=== PATIENT | male | born 1995 | race Caucasian/White ===

== ENCOUNTER 2019-05-24 13:14 | Emergency (ER) | payer OTHER ==
--- NOTE | 2019-05-24 15:51 | UC ---
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 HIS RIGHT THUMB WAS BENT BACKWARDS. SINCE THEN HE HAS HAD WORSENING PAIN IN HIS RIGHT THUMB AND WRIST. 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 Negative: Numbness/Tingling Related History: Dominant Hand Right - Allergies/Home Medications Allergies/Adverse Reactions: Allergies Allergy/AdvReac Type Severity Reaction Status Date / Time No Known Allergies Allergy Verified 05/24/19 14:59 Home Medications: Home Medications NK [No Home Medications Reported] 05/24/19 [History Confirmed 05/24/19] PMH/Surg Hx/FS Hx/Imm Hx Previously Healthy: Yes - Surgical History Surgical History: Yes Surgery Procedure, Year, and Place: orif of rt lower arm - Family History Known Family History: Positive: Non-Contributory - Social History Alcohol Use: Occasionally Substance Use Type: None Smoking Status (MU): Never Smoked Tobacco Review of Systems All Other Systems Reviewed And Are Negative: Yes Constitutional: Positive: Negative Respiratory: Positive: Negative Cardiovascular: Positive: Negative Gastrointestinal: Positive: Negative Musculoskeletal: Positive: Arthralgia, Decreased ROM, Edema Physical Exam Triage Information Reviewed: Yes Appearance: Well-Appearing, No Pain Distress, Well-Nourished Vital Signs: Initial Vital Signs Temp 98.4 F 05/24/19 14:50 Pulse 57 05/24/19 14:50 Resp 18 05/24/19 14:50 BP 124/76 05/24/19 14:50 Pulse Ox 100 05/24/19 14:50 Vital Signs Reviewed: Yes Eyes: Positive: Conjunctiva Clear ENT: Positive: Hearing grossly normal Neck: Positive: Supple Respiratory: Positive: No respiratory distress, No accessory muscle use Cardiovascular: Positive: Pulses Normal Abdomen Description: Positive: Soft Musculoskeletal: Positive: ROM Limited @ - RIGHT THUMB/WRIST, Edema @ - RIGHT HAND, Other: - TTP BASE OF RIGHT THUMB Neurological: Positive: Alert Psychological: Positive: Age Appropriate Behavior Skin: Negative: Rashes Procedures - Splinting Right Thumb Hand-Made Type: orthoglass Splint: thumb spica Pre-Proc Neuro Vasc Exam: normal Post-Proc Neuro Vasc Exam: normal Diagnostics - Radiology RIGHT HAND XRAYS Radiology Interpretation Completed By: Radiologist Summary of Radiographic Findings: Oblique fracture through the base of the first metacarpal with slight displacement. Hand/Wrist Course/Dx - Course Course Of Treatment: PATIENT FELT WORSE IN THE PRE-MADE THUMB SPICA SPLINT SO ORTHO-GLASS WAS USED TO IMMOBILIZE THE PATIENT'S RIGHT THUMB. HE WILL CALL ORTHOPEDICS FOR FOLLOW- UP APPOINTMENT NEXT WEEK. OTC MEDICATIONS NEEDED FOR DISCOMFORT. NO WORK UNTIL SEEN BY ORTHO. BINDERY MACHINE TENDER PAD WAS USED FOR COMMUNICATION PURPOSES TODAY. - Differential Dx/Diagnosis Provider Diagnosis: Fracture of metacarpal base, first, right hand, closed Discharge - Sign-Out/Discharge Documenting (check all that apply): Patient Departure All imaging exams completed and their final reports reviewed: Yes - Discharge Plan Condition: Stable Disposition: HOME Patient Education Materials: Thumb Fracture (ED) Print Language: TAMAZIGHT Forms: *Work Release Referrals: [facility] [Provider Group] - 3 Days Alverto Merida MD [Medical Doctor] - 3 Days Additional Instructions: X-RAY TODAY SHOWS A SLIGHTLY DISPLACED FRACTURE THROUGH THE BASE OF YOUR RIGHT THUMB. WEAR THE THUMB SPICA SPLINT UNTIL SEEN BY ORTHOPEDICS. USE THE SLING TO KEEP YOUR HAND ELEVATED AND OUT OF THE WAY. AVOID ANY ACTIVITIES THAT INVOLVE USING YOUR RIGHT HAND UNTIL OTHERWISE STATED BY ORTHOPEDICS. IBUPROFEN NEEDED FOR DISCOMFORT. CALL THE ORTHOPEDIC OFFICE OF YOUR CHOICE TODAY TO SCHEDULE A FOLLOW-UP APPT FOR EARLY NEXT WEEK. - Billing Disposition and Condition Condition: STABLE Disposition: Home
== END 2019-05-24 16:31 | disposition home or self-care (01) ==
LOC: UCEAST 13:14
DX: S62.231A Other displaced fracture of base of first metacarpal bone, right hand, initial encounter for closed fracture (principal); W23.0XXA Caught, crushed, jammed, or pinched between moving objects, initial encounter; Y93.K9 Activity, other involving animal care; Y92.73 Farm field as the place of occurrence of the external cause; Y99.0 Civilian activity done for income or pay
CPT/HCPCS: 99201; G0463

== ENCOUNTER → 2019-05-31 12:10 | Day surgery (SDC) | payer OTHER ==
--- NOTE | 2019-05-31 06:46 | HP ---
HISTORY AND PHYSICAL: DATE OF ADMISSION/SURGERY: 05/31/19 DATE OF OFFICE VISIT: 05/30/19 SURGEON: Dr. Enciso.* (DICTATED BY TODD SCHROEDER) PROCEDURE: Right closed reduction and percutaneous pinning versus open reduction and internal fixation thumb metacarpal base. CHIEF COMPLAINT: Right thumb pain. HISTORY OF PRESENT ILLNESS: Armando Bunch is a 23-year-old male presenting to the clinic today for right thumb pain. He cannot speak Canadian. His boss is accompanying him to the office visit today. Between his boss and Dr. Enciso, we were able to translate. 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 A cow turned and bent his hands, forcing his thumb into abduction. He had swelling immediately of his right hand and thumb. When the swelling and pain did not decrease, he went to urgent care on 05/24/19 and had x-rays done showing a fracture at the base of the right thumb. They gave him a splint and referred him to our office. He is right-handed. Today, he is having 3/10 aching pain in his right thumb. He is able to bend the thumb, but does cause pain and he does have some pain with terminal end range of wrist flexion and extension. He does not have a history of any injury to his right thumb previously. He did have an ORIF of his right ulna in [facility] several years ago. He has no radiation of pain and he denies numbness or tingling and he denies any other joint pain. PAST MEDICAL HISTORY: Negative. PAST SURGICAL HISTORY: Right ulna ORIF in [facility] at unknown date. MEDICATIONS: No current medications. ALLERGIES: No known drug allergies. FAMILY HISTORY: Unobtainable. SOCIAL HISTORY: He lives alone. 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 He denies any tobacco or recreational drug use. He drinks about 2 alcoholic beverages per week. He is right-handed. REVIEW OF SYSTEMS: Negative for general, cephalic, CV, respiratory, GI, , or other musculoskeletal, integumentary, endocrine, neurologic, hematologic symptoms. Infectious disease is negative for MRSA, hep C, or HIV. PHYSICAL EXAMINATION GENERAL: Well-developed, well-nourished, 23-year-old male, in no acute distress. VITAL SIGNS: Height 64 inches, weight 160 pounds. Pulse 68, BP 122/68, respirations 16, temperature 98.0. Pain level is 3. BMI 27.5. HEENT: Normocephalic, atraumatic. PERRLA. Extraocular movements intact. NECK: Supple. No palpable lymph nodes. Throat is clear. PULMONARY: Lungs are clear to auscultation bilaterally. No wheezes, rales, or rhonchi. CARDIO: Regular rate and rhythm. S1 and S2 heard. No murmurs, rubs, gallops. No edema. ABDOMEN: Positive bowel sounds. Soft and nontender. NEUROLOGIC: A and O x3. Cranial nerves II through XII intact. Sensation is intact to light touch. MUSCULOSKELETAL: Right upper extremity, there is diffuse soft tissue swelling about the right hand and right thumb. There are no open wounds or abrasions. He has tenderness to palpation at the base of the left metacarpal joint. He has full range of wrist motion with some pain with terminal flexion and extension. He is able to flex and abduct his thumb minimally due to pain. The ulnar collateral ligament is intact with stress testing of the thumb. Strength of the wrist and fingers is 5/5. Sensation is intact to light touch. Radial pulses 2+. DIAGNOSTIC STUDIES: Films from 05/24/19 show an intraarticular base fracture of the right thumb with volar ulnar fragment connected to the beak ligament. It is displaced at least 1 mm, positive for Mckinley fracture. IMPRESSION: Right thumb Mckinley fracture. PLAN: The patient is scheduled to undergo a right closed reduction and percutaneous pinning versus open reduction and internal fixation of the thumb in the metacarpal base with Dr. Enciso on 05/31/19. Dr. Enciso went over the procedure as well as the risks and benefits with the patient. He elected to proceed. He will follow up in the office in 10 to 14 days postop for followup and suture removal and a prescription for Percocet will be e-scribed to the patient's pharmacy following the surgery tomorrow morning. TODD SCHROEDER [id number]/[facility] #: [id number] [facility]
[~2019-05-31 12:10] MED LIST: Acetaminophen TAB* 325 MG ONE; Acetaminophen TAB* 325 MG PO ONE; Buffered Lidocaine 1% SYRIN* 1 ML/SYRINGE INTRADERM ONE; Bupivacaine 0.25% SDV PF* 10 ML VIAL INJ ONE; Dexamethasone IV* 4 MG/ML 1 ML (4 MG) ONE; DiMENhydriNATE IV* 50 MG/ML VIAL IV PUSH PRN; Famotidine IV* 10 MG/ML 2 ML (20 mg) ONE; Gabapentin CAP(*) 300 MG ONE; Gabapentin CAP(*) 300 MG PO ONE; HYDROcodone/ACETAMIN 5-325 MG* 1 TAB ONE; HYDROcodone/ACETAMIN 5-325 MG* 1 TAB PO PRN; Ketorolac INJ* 30 MG/ML 1 ML VIAL ONE; Lactated Ringers 1000 ML Bag* 1,000 ML IV SCH; Lidocaine 2% PF * 5 ML VIAL ONE; Midazolam* 1 MG/ML 2 ML VIAL (2 MG) ONE; Naloxone* 0.4 MG/ML 1 ML VIAL IV PRN; Ondansetron INJ* 2 MG/ML VIAL IV PRN; PROCHLORPERAZINE INJ 5 MG/ML 2 ML VIAL IV PRN; Propofol* 10 MG/ML 20 ML BTL ONE; ceFAZolin 2 GM in NS PREMIX(*) 2 GM/100 ML BAG IVPB ONE; diPHENhydraMINE IV* 50 MG/ML 1 ml VIAL (BENADRYL) IV PRN; fentaNYL* 50 MCG/ML 2 ML VIAL (100 MCG VIAL) IV PRN; fentaNYL* 50 MCG/ML 2 ML VIAL (100 MCG VIAL) ONE
[2019-05-31 18:27] VITALS: BP 125/78
--- NOTE | 2019-06-02 05:46 | OP ---
OPERATIVE REPORT: DATE OF OPERATION: 05/31/19 DATE OF : [birth year] SURGEON: Geovanni Enciso MD POLYMERIZATION KETTLE OPERATOR: TODD Jean A physician cosmetic sales assistant was required for the length of the procedure for assistance with patient positioning, instrumentation. ANESTHESIOLOGIST: Dr. Stef Wilson. ANESTHESIA: General anesthesia, local anesthesia consisting of 6 cc of Marcaine 0.5% with epinephrine. PRE-OP DIAGNOSES: Right thumb metacarpal base fracture, Mckinley's fracture, fracture dislocation of carpometacarpal joint. POST-OP DIAGNOSES: Right thumb metacarpal base fracture, Mckinley's fracture, fracture dislocation of carpometacarpal joint. OPERATIVE PROCEDURE: Closed reduction percutaneous pinning, right thumb metacarpal base fracture, Mckinley's fracture. 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 The patient's pain and swelling in the thumb did not improve and he went to an urgent care on 05/24/19, which demonstrated a fracture and the patient then saw me in clinic on 05/30/19. X-rays demonstrated an intraarticular fracture at the base of the right thumb metacarpal with some resultant minimal subluxation of the carpometacarpal joint. Displacement was at least 1 mm. Difficult to tell whether it was 1 or 2 mm, but it was at least 1 mm. I discussed with the patient how we generally recommend surgery if there is more than 1-mm displacement at the base of the thumb, intraarticular for fractures such as this Mckinley's fracture. Discussed risks and potential complications of surgery. Booked the patient for closed reduction percutaneous pinning versus open reduction and internal fixation. Fortunately, I was able to get the patient an operating room slot the next day because as we would be 9 days post-injury, we would be close to be the upper end of time for closed reduction percutaneous pinning to work. It is my preference to use percutaneous pins for this fracture if possible as all hardware can be removed, but I had all the instrumentation available to place screws after doing open reduction, as needed. ANTIBIOTICS: Ancef 2 g IV. IV FLUIDS: See Anesthesia note. TOURNIQUET TIME: 0 minutes. EOMH-FV-[id number] TIME: Approximately 50 minutes. RADIATION EXPOSURE: Mini C-arm utilized. Time and radiation dose not yet available. IMPLANTS: 0.045 K wires x 3 COMPLICATIONS: None. ESTIMATED BLOOD LOSS: Minimal. DESCRIPTION OF PROCEDURE: In the preoperative holding, the patient signed a written consent. I spoke with the patient in Armenian although we also had an sales representative education courses, rather a nurse providing interpreting services. I had also spoken in the clinic to one of the patient's employers who is Ukrainian speaking. The patient signed a written consent in the preoperative holding and the operative extremity was marked as well. The patient was taken back to the operating room on a stretcher. The patient was sedated and intubated. Hand table was applied. The right upper extremity was prepped and draped after a tourniquet had been applied to the right upper arm. We had some technical issues with the mini C-arm. We waited a while for it to be started. Just as we were ready to use another mini C-arm device, this mini C -arm started working. I brought the mini C-arm in. I performed a range of reduction maneuvers and was able to reduce the fracture to my satisfaction, so decided that I would proceed forward with a closed reduction percutaneous pinning. I used 0.045 K-wires for this procedure. I placed my first one from the more radial side of the midline on the dorsal aspect of the proximal thumb metacarpal. I directed it proximal and slightly ulnar. I performed a reduction maneuver again, which at this point was mostly straight longitudinal traction. I advanced the pin. Took mini C-arm images which showed anatomic reduction in all views, lateral, AP, PA, and obliques. The K-wire had driven into the trapezium and trapezoid. It actually had even driven slightly further ulnar and we pulled it back later on the case. I next placed an additional K-wire; this from the ulnar half of the dorsal aspect of the proximal thumb metacarpal. I respected the location of the extensor tendons. I placed this more straight proximally, although was moving in a slightly volar direction and I placed that into the trapezium. I placed an additional third pin from more radial than the first pin, placing it through the base of the thumb metacarpal. This pin actually engaged the small volar ulnar fragment, although that was not my intention. It appeared to maintain the reduction nicely and I withdrew the pin so it was not overly long but it did not clearly enter the metacarpal trapezium joint. There were only several drops of bleeding during the case. I pulled back the pins slightly so that they would not be overly prominent proximally, although difficult to get an excellent lateral view of the trapezium and trapezoid. I took final x-ray views. I cut and then bent and cut again the K-wires outside of the body. I put end caps on. I wrapped their bases with Xeroform and then placed a bulky 4x4 dressing, followed by Webril, followed by large radial gutter splint that fully encased thumb to its tip overwrapped with an Julain bandage. DISPOSITION: The patient was extubated and brought to the PACU. The patient was given Percocet to take as needed for pain and a 7-day course of Keflex to avoid infection. The patient's general appearance was very hygienic and well presented and I spoke to both him and his employer in detail about the need for him to keep that splint in that hand clean to avoid infection. The patient will follow up in just over 1 week in clinic and at that time we will obtain x- rays and we will place a cast. My plan will be for the patient to remain with the pins in place for 4 to 6 weeks postoperative. The patient is aware and he knows that he will be limited in his ability to do any work about the farm. [id number]/[facility] #: [id number] MICHEL
== END | disposition home or self-care (01) ==
LOC: OR 12:10
PROVIDERS: ATTEND Orthopaedic Surgery
DX: S62.211A Bennett's fracture, right hand, initial encounter for closed fracture (principal); W55.22XA Struck by cow, initial encounter; Y93.89 Activity, other specified; Y92.73 Farm field as the place of occurrence of the external cause; Y99.0 Civilian activity done for income or pay
CPT/HCPCS: 76000; A9270-GY; C1776; J0690; J1100; J1885; J2250; J2704; J3010; J3490

== ENCOUNTER 2019-08-06 08:53 | Emergency (ER) | payer OTHER ==
--- OUTSIDE RECORDS SUMMARY | 2019-08-06 08:59 | XMS REPORT | Continuity of Care Document ---
:1995 External Reference #:[id number] Author Name Antony Amayafelix Care Team Providers Name Role Phone Patient's Choice Primary Care Physician Unavailable Payers Date Identification Numbers Payment Provider Subscriber Onset: 2019 Policy Number: [id number] Magda Bunch PayID: [id number] [address] [address] [place] [address] Problems Description No Active Problems Family History Date Family Member(s) Observation Comments General No Current Problems Social History Type Date Description Comments Sex Unknown Lives With Alone Occupation [employer] ETOH Use Drinks 2 Alcoholic Beverages Per Week Tobacco Use Start: Unknown Patient has never smoked Smoking Status Reviewed: 06/11/19 Patient has never smoked Exercise Type/Frequency Exercises regularly Allergies, Adverse Reactions, Alerts Description No Known Drug Allergies Medications Active Medications SIG Qnty Indications Ordering Provider Date No Active Medications Unknown 06/11/2019 History Medications Percocet 1 by mouth every 20tabs Geovanni Zacarias 05/31/2019 - 5-325mg Tablets 6 hours as MD Zaria 06/10/2019 needed pain Keflex take 1 tablet by 21caps Geovanni Zacarias 05/31/2019 - 500mg Capsules mouth every 8 MD Zaria 06/10/2019 hours for 7 days No Active Medications Unknown 05/30/2019 - 05/31/2019 Vital Signs Date Vital Result Comment 06/11/2019 2:00pm Height 64 inches 5'4" Weight 160.00 lb Heart Rate 64 /min BP Systolic 128 mmHg BP Diastolic 78 mmHg Body Temperature 97.0 F Pain Level 0 BMI (Body Mass Index) 27.5 kg/m2 05/30/2019 3:47pm Height 64 inches 5'4" Weight 160.00 lb Heart Rate 68 /min BP Systolic 122 mmHg BP Diastolic 68 mmHg Respiratory Rate 16 /min Body Temperature 98.0 F Pain Level 0 BMI (Body Mass Index) 27.5 kg/m2 Procedures Date Code Description Status 06/11/2019 12845 Short Arm Cast Application Completed 05/31/2019 96133 FX Metacarpal Percutaneous Skeletal Fixation Completed 05/31/2019 13563 FX Metacarpal Percutaneous Skeletal Fixation Completed 05/31/2019 28674 FX Metacarpal Percutaneous Skeletal Fixation Completed Plan of Treatment Future Appointment(s):07/04/2019 1:30 pm - Ge[facility] Enciso MD [facility]06/11/2019 - Geovanni Enciso, [id number] Mckinley 's fracture, right hand, subsequent encounter for fracture with routine healingFollow up:Follow up: 3.5 weeks with xrays
--- OUTSIDE RECORDS SUMMARY | 2019-08-06 08:59 | XMS REPORT | Continuity of Care Document ---
:1995 External Reference #:[id number] Demographics Address [address] [place] [address] Home Phone [phone] Mobile Phone [phone] Email Address 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 Problems Description No Active Problems Social History Type Date Description Comments Sex Unknown ETOH Use Drinks 2 Alcoholic Beverages Per Week Tobacco Use Start: Unknown Patient has never smoked Smoking Status Reviewed: 07/25/19 Patient has never smoked Exercise Type/Frequency Exercises [...] No Active Medications Unknown 05/30/2019 - 05/31/2019 Immunizations Description No Information Available Vital Signs Date Vital Result Comment 07/25/2019 1:37pm Height 64 inches 5'4" Weight 173.00 lb Heart Rate 74 /min BP Systolic 116 mmHg BP Diastolic 70 mmHg Respiratory Rate 12 /min Pain Level 0 BMI (Body Mass Index) 29.7 kg/m2 07/04/2019 1:36pm Height 64 inches 5'4" Weight 160.00 lb Heart Rate 64 /min BP Systolic 136 mmHg BP Diastolic 88 mmHg BMI (Body Mass Index) 27.5 kg/m2 Results Description No Information Available Procedures Date Code Description Status 06/11/2019 24182 Short Arm Cast Application Completed 05/31/2019 33664 FX Metacarpal Percutaneous Skeletal Fixation Completed 05/31/2019 16637 FX Metacarpal Percutaneous Skeletal Fixation Completed 05/31/2019 60613 FX Metacarpal Percutaneous Skeletal Fixation Completed 05/31/2019 70134 FX Metacarpal Percutaneous Skeletal Fixation Completed Medical Devices Description No Information Available Encounters Type Date Location Provider Dx Diagnosis Office Visit 05/30/2019 [facility] Geovanni Zacarias S62.211A [facility] Enciso MD fracture, right hand, init for clos fx S62.231A Oth disp fx of base of first MC bone, right hand, init Assessments Date Code Description Provider 07/25/2019 S62.211D [facility] fracture, right hand, subsequent Geovanni Enciso MD encounter for fracture with routine healing 07/04/2019 S62.211D [facility] fracture, right hand, subsequent Geovanni Enciso MD encounter for fracture with routine healing 06/11/2019 S62.211D [facility] fracture, right hand, subsequent Geovanni Enciso MD encounter for fracture with routine healing 05/31/2019 S62.231A Other displaced fracture of base of first TODD Jean metacarpal bone, right hand, initial encounter for closed fracture 05/31/2019 S62.231A Other displaced fracture of base of first Geovanni Enciso MD metacarpal bone, right hand, initial encounter for closed fracture 05/30/2019 S62.211A Mckinley's fracture, right hand, initial Geovanni Enciso MD encounter for closed 05/30/2019 S62.231A Other displaced fracture of base of first Geovanni Enciso MD metacarpal bone, right hand, initial encounter for closed fracture Plan of Treatment Future Appointment(s):09/24/2019 1:45 pm - Geovanni Enciso [facility]07/25/2019 - DASH [id number] Mckinley 's fracture, right hand, subsequent encounter for fracture with routine healingFollow up:Follow up: 2 months Functional Status Description No Information Available Mental Status Description No Information Available Referrals Description No Information Available
--- OUTSIDE RECORDS SUMMARY | 2019-08-06 08:59 | XMS REPORT | Continuity of Care Document ---
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 Problems Description No Active Problems Social History Type Date Description Comments Sex Unknown ETOH Use Drinks 2 Alcoholic Beverages Per Week Tobacco Use Start: Unknown Patient has never smoked Smoking Status Reviewed: 07/04/19 Patient has never smoked Exercise Type/Frequency Exercises [...] Available Vital Signs Date Vital Result Comment 07/04/2019 1:36pm Height 64 inches 5'4" Weight 160.00 lb Heart Rate 64 /min BP Systolic 136 mmHg BP Diastolic 88 mmHg BMI (Body Mass Index) 27.5 kg/m2 06/11/2019 2:00pm Height 64 inches 5'4" Weight 160.00 lb Heart Rate 64 /min BP Systolic 128 mmHg BP Diastolic 78 mmHg Body Temperature 97.0 F Pain Level 0 BMI (Body Mass Index) 27.5 kg/m2 Results Description No Information Available Procedures Date Code Description Status 06/11/2019 87014 Short Arm Cast Application Completed 05/31/2019 48617 FX Metacarpal Percutaneous Skeletal Fixation Completed 05/31/2019 25982 FX Metacarpal Percutaneous Skeletal Fixation Completed 05/31/2019 86825 FX Metacarpal Percutaneous Skeletal Fixation Completed 05/31/2019 16352 FX Metacarpal Percutaneous Skeletal Fixation Completed Medical Devices Description No Information Available Encounters Type Date Location Provider Dx Diagnosis Office Visit 05/30/2019 [facility] Geovanni Zacarias S62.211A [facility] Enciso MD fracture, right hand, init for clos fx S62.231A Oth disp fx of base of first MC bone, right hand, init Assessments Date Code Description Provider 07/04/2019 S62.211D [facility] fracture, right hand, subsequent [...] for closed fracture Plan of Treatment Future Appointment(s):07/25/2019 1:30 pm - [facility] - Geovanni Enciso [id number] Mckinley 's fracture, right hand, subsequent encounter for fracture with routine healingFollow up:Follow up: 3 weeks with xrays Functional Status Description No Information Available Mental Status Description No Information Available Referrals Description No Information Available
[2019-08-06 09:12] VITALS: BP 136/65
--- NOTE | 2019-08-06 09:48 | UC ---
Abdominal Pain Male HPI - HPI Summary HPI Summary: 23 yo male presents accompanied by coworker with RLQ abdominal pain. Pt speaks little Luxembourgish, but main language is Slovenian - therefore the assistance of an senior environmental consultant pad was used today. Pt tells me that last night he developed RLQ abdominal pain. This morning his pain has worsened and is worse with standing or lying flat or touching the area. He is nauseous this morning, but has not vomited. He last drank water about 3 hours ago - nothing to eat today. No hx of abdominal surgeries. [place] chills earlier today, but no documented fever. - History of Current Complaint Chief Complaint: UCAbdominalPain Stated Complaint: ABDOMINAL PAIN Time Seen by Provider: 08/06/19 09:48 Hx Obtained From: Patient, American History Teacher Onset/Duration: Sudden Onset Severity Initially: Mild Severity Currently: Moderate Pain Intensity: 5 Pain Scale Used: 0-10 Numeric - Allergies/Home Medications Allergies/Adverse Reactions: Allergies Allergy/AdvReac Type Severity Reaction Status Date / Time No Known Allergies Allergy Verified 08/06/19 09:12 PMH/Surg Hx/FS Hx/Imm Hx - Additional Past Medical History Additional PMH: None - Surgical History Surgical History: Yes Surgery Procedure, Year, and Place: orif of rt lower arm - Family History Known Family History: Positive: Non-Contributory - Social History Occupation: Employed Full-time Alcohol Use: Occasionally Substance Use Type: None Smoking Status (MU): Never Smoked Tobacco Review of Systems All Other Systems Reviewed And Are Negative: No Constitutional: Positive: Chills Skin: Positive: Negative Respiratory: Positive: Negative Cardiovascular: Positive: Negative Gastrointestinal: Positive: Abdominal Pain, Nausea Genitourinary: Positive: Negative Neurological: Positive: Negative Psychological: Positive: Negative Physical Exam - Summary Physical Exam Summary: GENERAL: NAD. WDWN. No pain distress. SKIN: No rashes, sores, lesions, or open wounds. NECK: Supple. Nontender. No lymphadenopathy. CHEST: CTAB. No r/r/w. No accessory muscle use. Breathing comfortably and in no distress. CV: RRR. Without m/r/g. Pulses intact. Cap refill <2seconds ABDOMEN: Moderate RLQ mcburnery point tenderness. Pain when trying to lay flat. Positive psoas sign. Soft. No CVA tenderness. Bowel sounds present NEURO: Alert. PSYCH: Age appropriate behavior. Triage Information Reviewed: Yes Vital Signs: Initial Vital Signs Temp 98.2 F 08/06/19 09:03 Pulse 88 08/06/19 09:03 Resp 16 08/06/19 09:03 BP 136/65 08/06/19 09:03 Pulse Ox 100 08/06/19 09:03 Laboratory Tests 08/06/19 09:23 POC Urine Color Yellow POC Urine Clarity Clear POC Urine pH 6.0 POC Ur Specif [place] 1.025 POC Urine Protein Negative POC Ur Glucose (UA) Negative POC Urine Ketones Negative POC Urine Blood Negative POC Urine Nitrite Negative POC Urine Bilirubin Negative POC Urine Urobilinogen 0.2 POC U Leukocyte Esteras Negative Vital Signs Reviewed: Yes Procedures - Sedation Patient Received Moderate/Deep Sedation with Procedure: No Abd Pain Male Course/Dx - Course Course Of Treatment: High suspicion for appendicitis. I discussed this with the pt and recommended that he be further evaluated in the ED. He was agreeable to this. His coworker with him today will drive him. - Differential Dx/Clinical Impression Provider Diagnosis: RLQ abdominal pain, Nausea Discharge ED - Sign-Out/Discharge Documenting (check all that apply): Patient Departure All imaging exams completed and their final reports reviewed: No Studies - Discharge Plan Condition: Stable Disposition: HOME-RECOMMEND TO ED Referrals: No Primary Care Phys,NOPCP [Primary Care Provider] - Additional Instructions: Please go to the ER for further evaluation of your right lower abdominal pain - Billing Disposition and Condition Condition: STABLE Disposition: Home-Recommend to ED - Attestation Statements Provider Attestation: patient not seen by me I was available for consult chart reviewed [email or web address]
== END 2019-08-06 10:08 | disposition home health service (06) ==
LOC: UCEAST 08:53
DX: R10.31 Right lower quadrant pain (principal); R11.0 Nausea
CPT/HCPCS: 81003; 99212; G0463

== ENCOUNTER → 2019-08-06 | Day surgery (SDC) | payer OTHER ==
[~2019-08-06] MED LIST changes: -Acetaminophen TAB* 325 MG ONE; -Acetaminophen TAB* 325 MG PO ONE; -Buffered Lidocaine 1% SYRIN* 1 ML/SYRINGE INTRADERM ONE; +DiMENhydriNATE IV* 50 MG/ML VIAL ONE; -Famotidine IV* 10 MG/ML 2 ML (20 mg) ONE; -Gabapentin CAP(*) 300 MG ONE; -Gabapentin CAP(*) 300 MG PO ONE; -HYDROcodone/ACETAMIN 5-325 MG* 1 TAB ONE; -HYDROcodone/ACETAMIN 5-325 MG* 1 TAB PO PRN; +HYDROmorphone INJ1* 1 MG/ML SYRINGE IV PRN; +Iohexol 300* (CONTRAST) 10 ML SDV IV ONE; -Lactated Ringers 1000 ML Bag* 1,000 ML IV SCH; -Lidocaine 2% PF * 5 ML VIAL ONE; -Midazolam* 1 MG/ML 2 ML VIAL (2 MG) ONE; +Midazolam* 1 MG/ML 5 ML VIAL (5 MG) ONE; +NS 0.9% 1000 ML** 1,000 ML IV ONE; +Ondansetron INJ* 2 MG/ML VIAL ONE; -PROCHLORPERAZINE INJ 5 MG/ML 2 ML VIAL IV PRN; +Piperacillin/Tazobac ADVAN(*) 3.375 GM in NS 0.9% 100 ML* 100 ML IVPB ONE; +Rocuronium* 10 MG/ML VIAL ONE; -ceFAZolin 2 GM in NS PREMIX(*) 2 GM/100 ML BAG IVPB ONE; -diPHENhydraMINE IV* 50 MG/ML 1 ml VIAL (BENADRYL) IV PRN; +oxyCODONE TAB* 5 MG TAB PO PRN; +oxyCODONE/Acetamin 5/325 MG* TAB PO PRN
[2019-08-06 11:15] LABS: ABS Neutrophils 13.7 10^3/ul (1.5-7.7); Eosinophil % 0.1 %; Hematocrit 47 % (42-52); Hemoglobin 16.1 g/dL (14.0-18.0); Lymphocyte % 6.3 %; Mean Corpuscular HGB Conc 34 g/dL (31-36); Mean Corpuscular Hemoglobin 27 pg (27-31); Mean Corpuscular Volume 79 fL (80-94); Mean Platelet Volume 8.6 fL (7.4-10.4); Platelet Count 261 10^3/uL (150-450); Red Blood Count 5.98 10^6 /uL (4.18-5.48); Red Cell Distribution Width 14 % (10-15); White Blood Count 15.8 10^3/uL (3.5-10.8)
[2019-08-06 11:52] LABS: Albumin 4.9 g/dL (3.2-5.2); Albumin/Globulin Ratio 1.8 (1-3); BUN/Creatinine Ratio 13.8 (8-20); C Reactive Protein 10.87 mg/L (<8.01); Calcium 9.8 mg/dL (8.6-10.3); EGFR African American 129.4 (>60); EGFR Non-African American 106.9 (>60); Globulin 2.7 g/dL (2-4); Potassium 4.1 mmol/L (3.5-5.0); Total Bilirubin 0.7 mg/dL (0.2-1.0); Total Protein 7.6 g/dL (6.4-8.9)
[2019-08-06 13:59] LABS: Urine Appearance Clear; Urine Bilirubin Negative (Negative); Urine Blood Negative (Negative); Urine Color Yellow; Urine Glucose Negative (Negative); Urine Ketones Negative (Negative); Urine Nitrite Negative (Negative); Urine Protein Negative (Negative); Urine Specific Gravity 1.009 (1.010-1.030); Urine Urobilinogen Negative (Negative)
--- NOTE | 2019-08-06 14:09 | ED ---
Abdominal Pain/Male - HPI Summary HPI Summary: This is an otherwise healthy 23-year-old male who speaks Serbian presenting to the ED from urgent care. Patient states last evening he developed acute onset sharp right lower quadrant pain which is nonradiating. He denies any testicular pain. He endorses subjective fevers, sweats and chills. He endorses nausea without vomiting. Denies any abdominal surgeries. Last by mouth intake was 7 AM this morning. He was sent by urgent care to rule out appendicitis. Last night - History of Current Complaint Chief Complaint: EDAbdPain Stated Complaint: LOWER ABD PAIN Time Seen by Provider: 08/06/19 10:53 Hx Obtained From: Patient, Family/Loss Prevention Research Engineer, Linen Checker Onset/Duration: Sudden Onset Timing: Constant Severity Initially: Moderate Severity Currently: Moderate Pain Intensity: 5 Pain Scale Used: 0-10 Numeric Radiates: No Character: Sharp, Cramping Aggravating Factor(s): Nothing Alleviating Factor(s): Position Associated Signs And Symptoms: Positive: Diaphoresis, Nausea. Negative: Fever, Cough, Chest Pain, Blood in Stool, Vomiting, Diarrhea - Risk Factors Testicular Torsion: Negative Cardiac Risk Factors: Negative - Allergies/Home Medications Allergies/Adverse Reactions: Allergies Allergy/AdvReac Type Severity Reaction Status Date / Time No Known Allergies Allergy Verified 08/06/19 09:12 PMH/Surg Hx/FS Hx/Imm Hx Previously Healthy: Yes - Surgical History Surgery Procedure, Year, and Place: orif of rt lower arm - Immunization History Hx Pertussis Vaccination: No - increasing in severity Immunizations Up to Date: Yes Infectious Disease History: No Infectious Disease History: Denies: Traveled Outside the [place] in Last 30 Days - Family History Known Family History: Positive: Non-Contributory - Social History Occupation: Employed Full-time Lives: With Family Alcohol Use: Occasionally Hx Substance Use: No Substance Use Type: Reports: None Hx Tobacco Use: No Smoking Status (MU): Never Smoked Tobacco Review of Systems Negative: Fever, Chills, Fatigue, Skin Diaphoresis Negative: Palpitations, Chest Pain Negative: Shortness Of Breath, Cough Positive: Abdominal Pain - RLQ pain, Nausea. Negative: Vomiting, Diarrhea Genitourinary: Negative Positive: no symptoms reported, see HPI. Negative: hematuria Negative: Arthralgia, Myalgia Skin: Negative Neurological: Negative All Other Systems Reviewed And Are Negative: Yes Physical Exam Triage Information Reviewed: Yes Vital Signs On Initial Exam: Initial Vitals Temp Pulse Resp BP Pulse Ox 98.8 F 79 20 130/94 99 08/06/19 10:30 08/06/19 10:30 08/06/19 10:30 08/06/19 10:30 08/06/19 10:30 Vital Signs Reviewed: Yes Appearance: Positive: Well-Nourished, Ill-Appearing Skin: Positive: Warm, Skin Color Reflects Adequate Perfusion Head/Face: Positive: Normal Head/Face Inspection Eyes: Positive: EOMI, Conjunctiva Clear Neck: Positive: Supple, No Lymphadenopathy Respiratory/Lung Sounds: Positive: Clear to Auscultation, Breath Sounds Present Cardiovascular: Positive: RRR, Pulses are Symmetrical in both Upper and Lower Extremities Musculoskeletal: Positive: Strength/ROM Intact Neurological: Positive: Speech Normal Psychiatric: Positive: Affect/Mood Appropriate AVPU Assessment: Alert Diagnostics - Vital Signs Vital Signs Temp Pulse Resp BP Pulse Ox 08/06/19 10:30 98.8 F 79 20 130/94 99 - Laboratory Lab Results: Lab Results 08/06/19 08/06/19 08/06/19 Range/Units 11:05 11:05 11:05 WBC 15.8 H (3.5-10.8) 10^3/uL RBC 5.98 H (4.18-5.48) 10^6 /uL Hgb 16.1 (14.0-18.0) g/dL Hct 47 (42-52) % MCV 79 L (80-94) fL MCH 27 (27-31) pg MCHC 34 (31-36) g/dL RDW 14 (10-15) % Plt Count 261 (150-450) 10^3/uL MPV 8.6 (7.4-10.4) fL Neut % (Auto) 86.9 % Lymph % (Auto) 6.3 % Saline % (Auto) 6.6 % Eos % (Auto) 0.1 % Baso % (Auto) 0.1 % Absolute Neuts (auto) 13.7 H (1.5-7.7) 10^3/ul Absolute Lymphs (auto) 1.0 (1.0-4.8) 10^3/ul Absolute Monos (auto) 1.0 H (0-0.8) 10^3/ul Absolute Eos (auto) 0.0 (0-0.6) 10^3/ul Absolute Basos (auto) 0.0 (0-0.2) 10^3/ul Absolute Nucleated RBC 0.0 10^3/ul Nucleated RBC % 0.0 Sodium 135 (135-145) mmol/L Potassium 4.1 (3.5-5.0) mmol/L Chloride 102 (101-111) mmol/L Carbon Dioxide 25 (22-32) mmol/L Anion Gap 8 (2-11) mmol/L BUN 12 (6-24) mg/dL Creatinine 0.87 (0.67-1.17) mg/dL Est GFR ( Amer) 129.4 (>60) Est GFR (Non-Af Amer) 106.9 (>60) BUN/Creatinine Ratio 13.8 (8-20) Glucose 113 H (70-100) mg/dL Lactic Acid 1.1 (0.5-2.0) mmol/L Calcium 9.8 (8.6-10.3) mg/dL Magnesium 2.0 (1.9-2.7) mg/dL Total Bilirubin 0.70 (0.2-1.0) mg/dL AST 27 (13-39) U/L ALT 44 (7-52) U/L Alkaline Phosphatase 124 H (34-104) U/L C-Reactive Protein 10.87 H (<8.01) mg/L Total Protein 7.6 (6.4-8.9) g/dL Albumin 4.9 (3.2-5.2) g/dL Globulin 2.7 (2-4) g/dL Albumin/Globulin Ratio 1.8 (1-3) Lipase 17 (11.0-82.0) U/L Urine Color Urine Appearance Urine pH (5-9) Ur Specific [place] (1.010-1.030) Urine Protein (Negative) Urine Ketones (Negative) Urine Blood (Negative) Urine Nitrate (Negative) Urine Bilirubin (Negative) Urine Urobilinogen (Negative) Ur Leukocyte Esterase (Negative) Urine Glucose (Negative) 08/06/19 Range/Units 13:10 WBC (3.5-10.8) 10^3/uL RBC (4.18-5.48) 10^6 /uL Hgb (14.0-18.0) g/dL Hct (42-52) % MCV (80-94) fL MCH (27-31) pg MCHC (31-36) g/dL RDW (10-15) % Plt Count (150-450) 10^3/uL MPV (7.4-10.4) fL Neut % (Auto) % Lymph % (Auto) % Saline % (Auto) % Eos % (Auto) % Baso % (Auto) % Absolute Neuts (auto) (1.5-7.7) 10^3/ul Absolute Lymphs (auto) (1.0-4.8) 10^3/ul Absolute Monos (auto) (0-0.8) 10^3/ul Absolute Eos (auto) (0-0.6) 10^3/ul Absolute Basos (auto) (0-0.2) 10^3/ul Absolute Nucleated RBC 10^3/ul Nucleated RBC % Sodium (135-145) mmol/L Potassium (3.5-5.0) mmol/L Chloride (101-111) mmol/L Carbon Dioxide (22-32) mmol/L Anion Gap (2-11) mmol/L BUN (6-24) mg/dL Creatinine (0.67-1.17) mg/dL Est GFR ( Amer) (>60) Est GFR (Non-Af Amer) (>60) BUN/Creatinine Ratio (8-20) Glucose (70-100) mg/dL Lactic Acid (0.5-2.0) mmol/L Calcium (8.6-10.3) mg/dL Magnesium (1.9-2.7) mg/dL Total Bilirubin (0.2-1.0) mg/dL AST (13-39) U/L ALT (7-52) U/L Alkaline Phosphatase (34-104) U/L C-Reactive Protein (<8.01) mg/L Total Protein (6.4-8.9) g/dL Albumin (3.2-5.2) g/dL Globulin (2-4) g/dL Albumin/Globulin Ratio (1-3) Lipase (11.0-82.0) U/L Urine Color Yellow Urine Appearance Clear Urine pH 5.0 (5-9) Ur Specific [place] 1.009 L (1.010-1.030) Urine Protein Negative (Negative) Urine Ketones Negative (Negative) Urine Blood Negative (Negative) Urine Nitrate Negative (Negative) Urine Bilirubin Negative (Negative) Urine Urobilinogen Negative (Negative) Ur Leukocyte Esterase Negative (Negative) Urine Glucose Negative (Negative) Result Diagrams: 08/06/19 11:05 08/06/19 11:05 Lab Statement: Any lab studies that have been ordered have been reviewed, and results considered in the medical decision making process. Abdominal Pain Male Course/Dx - Course Course Of Treatment: This is an otherwise healthy 23-year-old male who speaks Serbian presenting to the ED from urgent care. Patient states last evening he developed acute onset sharp right lower quadrant pain which is nonradiating. He denies any testicular pain. He endorses subjective fevers, sweats and chills. He endorses nausea without vomiting. Denies any abdominal surgeries. Last by mouth intake was 7 AM this morning. He was sent by urgent care to rule out appendicitis. Labs obtained which showed 15,000 white count and a CRP of 10. He was given 2 L fluids in the ED. Refused any pain medications or nausea medications. All communication through the real estate professional. A CT abdomen/pelvis was obtained which shows an acute appendicitis. This was called in by Dr. Manzo at 1:[address] Drake, surgeon called at [address] Drake will come see patient in the ED. - Diagnoses Differential Diagnosis/HQI/PQRI: Appendicitis Provider Diagnoses: Appendicitis - Provider Notifications Discussed Care Of Patient With: Sonia Drake Discharge ED - Sign-Out/Discharge Documenting (check all that apply): Patient Departure All imaging exams completed and their final reports reviewed: No - Discharge Plan Condition: Stable Disposition: ADMITTED TO [facility] - Billing Disposition and Condition Condition: STABLE Disposition: Admitted to [facility] - Attestation Statements Provider Attestation: pt seen by midlevel provider independently, based on their assessment, it was not necessary to present the case to me but I was available for consultation. I did not form a physician-patient relationship with the patient. The chart however, has been reviewed. am signing this note strictly in an administrative capacity.
--- NOTE | 2019-08-06 15:42 | PN ---
Progress Note - Progress Note Date of Service: 08/06/19 Note: Surgery Progress Note Please see full dictated H&P by TODD Isabel. Patient is a healthy 23 yo M who presents with less than 1 day of RLQ abdominal pain. He had an elevated WBC and CT consistent with acute appendicitis. On physical exam, he is tender in the right lower quadrant. I discussed his diagnosis with him with the assistance of a phone casting room operator #[phone] in the ED. I explained surgery ( laparoscopic possible open appendectomy), the risks, benefits and alternatives. He understood that risks include but are not limited to bleeding, infection ( intraabdominal, superficial), injury to nearby structures including the cecum, bladder, small intestines and so forth. He understands all of these things and wishes to proceed. I also discussed general return to activity precautions. He should avoid heavy lifting and strenuous exercise for at least 3 weeks after surgery.
--- NOTE | 2019-08-06 17:30 | HP ---
HISTORY AND PHYSICAL: DATE OF ADMISSION: 08/06/19 ATTENDING PHYSICIAN: Dr. Sonia Drake.* (DICTATED BY TODD MASTERS) DIAGNOSIS: Acute appendicitis. CHIEF COMPLAINT: Severe right lower quadrant abdominal pain. 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 The patient has not eaten this morning , but did have some liquid this morning, last meal was last night. Presented to the emergency department where laboratory studies showed a white count of 15.[address] scan showed findings consistent with acute appendicitis. PAST MEDICAL HISTORY: Negative. PAST SURGICAL HISTORY: The patient did have a surgery on his right hand in May at our institution. MEDICATIONS: Currently takes no medications. ALLERGIES: No known drug allergies. FAMILY HISTORY: Noncontributory and negative. SOCIAL HISTORY: The patient denies smoking. Uses occasional alcohol. REVIEW OF SYSTEMS: A 14-point review of systems is negative with the exception of right lower quadrant abdominal pain, nausea. PHYSICAL EXAMINATION HEENT: Normocephalic, atraumatic. Pupils are equal, round, and reactive to light. CHEST: Clear to auscultation bilaterally. CVS: Regular rate and rhythm. ABDOMEN: Soft, nondistended. It is exquisitely tender over McBurney's point in the right lower quadrant. Remaining abdominal exam is negative. EXTREMITIES: Full range of motion. NEUROLOGIC: Negative. PSYCHOLOGICAL: Mental Status: He is A and O x3. HEMATOLOGICAL: Negative. INFECTIOUS DISEASE: Negative. HYDRATION AND NUTRITION STATUS: The patient is n.p.o., last had liquid this morning. ASSESSMENT: A 23-year-old Sami-speaking male with signs and symptoms consistent with acute appendicitis. PLAN: 1. The patient will be maintained n.p.o. 2. IV fluids will be continued. He has received 1 L so far. We will continue with IV fluids. We will add a dose of IV Zosyn. The patient has been consented for a laparoscopic appendectomy by Dr. Sonia Drake. The patient has been marked. All questions were answered to the patient's satisfaction. The entire exam was done with the assistance of an interpreting device, lock maintenance supervisor was [phone]. Again, all the patient's questions were answered to his satisfaction. He did sign consent for the surgery. 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 His sister and her live across street from him. The patient lives alone, but they will be here later this evening. The patient is scheduled for the operating room later on today. TODD MASTERS [id number]/[facility] #: [id number] MICHEL
--- NOTE | 2019-08-06 17:53 | BRIEFOPN ---
Brief Operative/Procedure Note - Operation Details Pre-Op Diagnosis: Acute appendicitis Post-Op Diagnosis: Acute appendicitis Procedures: laparoscopic appendectomy Surgeon(s)/Proceduralists: Sonia Drake Anesthesia: GETA Estimated Blood Loss: minimal, less than 10cc Findings: dilated, hyperemic non perforated appendix Specimen(s)/Culture(s) Description: appendix Complications: None
[2019-08-06 19:47] VITALS: BP 124/82
--- NOTE | 2019-08-07 02:05 | OP ---
DATE OF OPERATION: 08/06/19 - [facility] DATE OF : 89 ATTENDING SURGEON: Sonia Drake MD. BULK PLANT OPERATOR: None. ANESTHESIOLOGIST: Jose C Camacho MD. ANESTHESIA: General endotracheal anesthesia. PRE-OP DIAGNOSIS: Acute appendicitis. POST-OP DIAGNOSIS: Acute appendicitis. OPERATIVE PROCEDURE: Laparoscopic appendectomy. ESTIMATED BLOOD LOSS: Minimal, less than 10 cc. SPECIMEN: Appendix. INDICATIONS FOR SURGERY: Mr. Bunch is a very pleasant, healthy 23-year-old gentleman who presented to the emergency room with right lower quadrant abdominal pain for 1 day. He was found to have acute appendicitis on the CT scan. He gave informed consent for laparoscopic appendectomy. He understood that the risks included, but were not limited to bleeding, infection, injury to the nearby structures such as the bladder, intestines, cecum, and so forth. He understood these things as well as alternatives and benefits, and he wished to proceed. DESCRIPTION OF PROCEDURE: The patient was brought back to the operating room and placed on the operating table in the supine position. Sequential compression devices were placed on the bilateral lower extremities for DVT prophylaxis. Antibiotics were administered prior to coming to the operating room per the pre op nurse who was called to confirm this. General endotracheal anesthesia was induced. The patient's left arm was tucked, and the patient's abdomen was prepped and draped in the normal sterile fashion, and then prior to beginning the procedure, a time- out was performed, verifying the patient's name ; MR number; and the procedure to be performed. Next, 0.25% Marcaine was infiltrated into the left upper quadrant at [place] point. A Veress needle was advanced into the abdominal wall and then a saline drop test was performed to confirm that the Veress needle was within the abdominal cavity. Next, insufflation to 15 mmHg was obtained and then, 0.25% Marcaine was infiltrated into the left lower quadrant and then a 5 mm incision was made, and under direct visualization, an optical trocar was placed into the abdominal cavity. General inspection with the laparoscope showed that there was no apparent injury that had been made upon entry. The Veress needle was also in place in the left upper quadrant with no apparent injury from its entry. Therefore, it was removed and then an additional 5 mm trocar was placed just below the umbilicus under direct visualization. The 5 mm trocar in the left lower quadrant was upsized to a 12 mm trocar, and then under direct visualization after administrating local anesthesia, an additional 5 mm trocar was placed in the lower midline well above the bladder. Next, the appendix was visualized in the right lower quadrant. It was noted to be very dilated and hyperemic. There was a small amount of fibrous exudate on it, but there was no surrounding turbid fluid, and it was not perforated, and it was not gangrenous. It was a retroperitoneal appendix. With great care, the appendix was lifted up off of the retroperitoneum. The mesoappendix was divided using LigaSure and the base of the appendix was completely cleared off of the mesentery. Once this was done , a 45 mm saucedo stapler on an Endo-THERESE was used to staple across the base of the appendix. The appendix was then placed into an EndoCatch bag and removed from the abdomen as specimen. Next, the staple line was inspected and was noted to be hemostatic as well as intact. A small amount of fluid around it was suctioned out. After this was done, the 12 mm trocar was removed. The fascia was closed using an 0-Vicryl suture and the camera was placed within the abdominal cavity again, and it showed that there was nothing that had caught upon closure of the 12 mm trocar site. Next, desufflation was obtained and the remaining trocars were removed under direct visualization. All the skin incisions were closed using interrupted 4-0 Monocryl sutures. Sterile dressing was placed. The patient's anesthesia was reversed and he was taken to the PACU in stable condition. At the end of the case, all counts were correct and I was present during the entirety of the case. [id number]/[facility] #: [id number] [facility]ALSera
== END | disposition home or self-care (01) ==
LOC: ED 10:29 → OR 14:59
PROVIDERS: ATTEND Surgery
DX: K35.80 Unspecified acute appendicitis (principal); R10.31 Right lower quadrant pain
CPT/HCPCS: 36415; 74177; 80053; 81003; 83605; 83690; 83735; 85025; 86140; 88304; 99285; C1776; J1100; J1240; J1885; J2250; J2405; J2704; J3010; J3490; Q9967